=== PATIENT | female | born 1950 | race Two or more races ===

== ENCOUNTER 2024-06-17 09:46 | Emergency (ER) | payer OTHER ==
[~2024-06-17] VITALS: Ht 160 cm; Wt 72.6 kg
[2024-06-17] MEDS ORDERED: ROSUVASTATIN CA10 MG PO (10:19)
[2024-06-17] MEDS ORDERED: SYNTHROID75 MCG PO (10:19)
== END 2024-06-17 13:59 | disposition home or self-care (01) ==
LOC: ER 09:47
DX: J06.9 Acute upper respiratory infection, unspecified (principal); Z88.5 Allergy status to narcotic agent